=== PATIENT | female | born 1975 | race Caucasian/White ===

== ENCOUNTER 2016-09-09 23:19 | Emergency (ER) | payer OTHER ==
[~2016-09-09] VITALS: Ht 162.6 cm; Wt 145.0 kg
[~2016-09-09 23:19] MED LIST: ACETTAB3 PO; AMBIEN CR12.5 MG OR; AMOXICILLIN500 MG OR; AMOXICILLIN500 MG PO; ANTIVERT25 MG PO; ARMOUR THYRO60 MG PO; AZITHROMYCIN250 MG PO; B12 LIQUID IJ; BACLOFEN10 MG PO; BIAXIN500 M1 OR; CELEBREX200 MG PO; CELEBREX50 MG OR; CEPHALEXIN500 MG OR; CIPRO500 MG OR; CIPROFLOXACN500 MG PO; CLARITHROMYC500 M2 PO; D350000 IU PO; DARVOCET N-100100 - OR; DEPO-PROVER150 MG/ML IM; DHEA50 MG PO; DOXYCYC MONO100 MG OR; EMBREL IM; EQL B-121000 MCG IM; FIORICET PO; FLAGYL500 MG OR; FLEXERIL OR; FOLIC ACID1 MG OR; FUROSEMIDE20 MG PO; GABAPENTIN600 MG PO; HCG; HYDROCHLOROT25 MG OR; HYDROCHLOROT25 MG PO; IMURAN50 MG OR; IMURAN50 MG PO; INDERAL 40MG TA40 MG PO; ISONIAZID300 MG PO; K-DUR/KLOR-CON10 ME1 PO; KEFLEX250 MG PO; LASIX 20 MG TAB20 MG PO; LASIX 80 MG TAB80 MG PO; LASIX20 MG OR; LEVAQUIN500 MG PO; LOMOTIL2.5 MG OR; LORTAB 10 OR; LORTAB 5 OR; LYRICA150 MG OR; LYRICA50 MG OR; METHOTREXATE2.5 M1 OR; METHOTREXATE25 MG/ML IJ; MIRALAX3350 N1 PO; MORPHINE OR; MS CONTIN ER15 MG OR; MUCINEX600 MG PO; NEURONTIN100 MG OR; NEXIUM40 M1 OR; NEXIUM40 MG PO; NORCO1 TA2 OR; NORCO1 TAB PO; OMEGA-3 FISH1000 MG PO; OMEPRAZOLE20 MG PO; OXYCODONE HCL15 MG PO; OXYCODONE5 MG OR; PERCOCET 5/325M1 TAB OR; PERCOCET 5/325M1 TAB PO; PERCOCET1 TA4 PO; PLAQUENIL200 MG OR; PLAQUENIL200 MG PO; PREDNISONE1 MG PO; PREVACID30 M1 PO; PRIFTIN150 MG PO; PRILOSEC20 MG OR; PRILOSEC40 MG PO; PROAIR HFA IN; PROMETHAZINE25 M1 RE; PROMETHAZINE25 MG OR; PROMETHAZINE25 MG PO; PROPRANOLOL40 MG PO; PROPRANOLOL80 M1 PO; PYRIDOXINE25 MG PO; RESTORIL15 M1 PO; SEPTRA DS1 TAB OR; SMZ-TMP DS1 TAB PO; SOMA350 MG OR; SOMA350 MG PO; SUMATRIPTAN25 MG PO; SYNTHROID75 MCG PO; TEMAZEPAM30 MG PO; TORADOL OR; VENTOLIN HF1 IN; VISTARIL25 MG PO; VISTARIL50 MG PO; VOLTAREN75 M1 OR; VOLTAREN75 MG PO; VOSOL2 % OT; XANAX0.5 MG PO; ZITHROMAX250 MG PO; ZOFRAN ODT8 MG SL; ZONEGRAN100 M1 OR; ZPAK OR; [UNRECOGNIZED DRUG - OTHER] NAB
[2016-09-09] MEDS ORDERED: PERCOCET 10/31 COMBO PO (23:30)
[2016-09-10 00:45] VITALS: BP 134/76
== END 2016-09-10 00:52 | disposition home or self-care (01) | DRG 103 ==
LOC: ED 23:19
DX: G43.909 Migraine, unspecified, not intractable, without status migrainosus (principal); M32.9 Systemic lupus erythematosus, unspecified; G93.2 Benign intracranial hypertension; M19.90 Unspecified osteoarthritis, unspecified site; I10 Essential (primary) hypertension; N28.9 Disorder of kidney and ureter, unspecified; Z98.2 Presence of cerebrospinal fluid drainage device

== ENCOUNTER 2016-11-06 19:36 | Emergency (ER) | payer OTHER ==
[~2016-11-06] VITALS: Ht 162.6 cm; Wt 146.2 kg
[~2016-11-06 19:36] MED LIST changes: +PERCOCET 10/31 COMBO PO
[2016-11-06 20:24] LABS: URINE BILIRUBIN - DIPSTICK NEGATIVE (NEGATIVE); URINE BLOOD DIPSTICK SMALL (NEGATIVE); URINE CLARITY CLOUDY; URINE COLOR YELLOW; URINE GLUCOSE - DIPSTICK NEGATIVE (NEGATIVE); URINE KETONE TRACE mg/dL (NEGATIVE); URINE LEUK ESTERASE TRACE (NEGATIVE); URINE NITRITE - DIPSTICK NEGATIVE (Negative); URINE PH 6.5 (4.5-8.0); URINE PROTEIN - DIPSTICK TRACE mg/dL (NEG-TRACE); URINE UROBILINOGEN - DIPSTICK 0.2 E.U./dL (0.2)
[2016-11-06 20:34] LABS: URINE BACTERIA FEW hpf; URINE MUCUS FEW hpf (NONE-FEW); URINE SQUAMOUS EPITHELIAL CELL MANY EPI/hpf (0-FEW)
[2016-11-06 20:38] LABS: HEMATOCRIT 34.1 % (37.0-47.0); HEMOGLOBIN 11.5 g/dl (12.0-16.0); IMMATURE GRANULOCYTES 0.6 % (0.0-1.0); MEAN CELL VOLUME 90.2 fL CALC (80.0-100.0); MEAN CORPUSCULAR HGB 30.4 pG CALC (26.0-32.0); MEAN CORPUSCULAR HGB CONC 33.7 g/L CALC (32.0-36.0); NEUT# 4.13 thou/uL (2.00-7.15); RED BLOOD COUNT 3.78 mill/uL (4.20-5.60); RED CELL DISTRI WIDTH 11.9 % (11.5-15.5)
[2016-11-06 20:51] LABS: ALBUMIN 3.8 g/dL (3.2-5.0); ALKALINE PHOSPHATASE 106 u/l (38-126); ANION GAP 15 (6-22 (CALC)); BILIRUBIN, TOTAL 0.4 mg/dL (0.0-1.4); BUN 10 mg/dL (7-17); BUN/CREATININE RATIO 11 (12-20 (CALC)); CALCIUM 8.7 mg/dL (8.4-10.2); CARBON DIOXIDE 26 mmol/l (22-30); CHLORIDE 106 mmol/l (95-108); CREATININE 0.9 mg/dL (0.5-1.0); GFR > 60 ML/MIN (>=60 (CALC)); GFR FOR AFR.AMER. > 60 ML/MIN (>=60 (CALC)); GLUCOSE 97 mg/dL (65-105); POTASSIUM 4.1 mmol/l (3.5-5.1); SGOT/AST 29 u/l (14-36); SGPT/ALT 43 u/l (9-52); SODIUM 143 mmol/l (137-146); TOTAL PROTEIN 7.5 g/dL (6.3-8.2)
[2016-11-06 20:55] LABS: INFLUENZA A NONE DETECTED (NONE DETECT); INFLUENZA B NONE DETECTED (NONE DETECT)
[2016-11-06 23:30] VITALS: BP 181/91
== END 2016-11-06 23:30 | disposition left against medical advice (07) | DRG 204 ==
LOC: ED 19:36
PROVIDERS: Emergency Medicine
DX: R06.00 Dyspnea, unspecified (principal); M32.14 Glomerular disease in systemic lupus erythematosus; D86.0 Sarcoidosis of lung; I10 Essential (primary) hypertension; G93.2 Benign intracranial hypertension; Z91.19 Patient's noncompliance with other medical treatment and regimen; Z98.2 Presence of cerebrospinal fluid drainage device

== ENCOUNTER 2016-12-10 19:00 | Emergency (ER) | payer OTHER ==
[~2016-12-10] VITALS: Ht 162.6 cm; Wt 144.8 kg
[2016-12-10 20:32] LABS: HEMATOCRIT 40.4 % (37.0-47.0); HEMOGLOBIN 13.7 g/dl (12.0-16.0); IMMATURE GRANULOCYTES 0.4 % (0.0-1.0); MEAN CORPUSCULAR HGB 30.5 pG CALC (26.0-32.0); MEAN CORPUSCULAR HGB CONC 33.9 g/L CALC (32.0-36.0); NEUT# 6.33 thou/uL (2.00-7.15); RED BLOOD COUNT 4.49 mill/uL (4.20-5.60); RED CELL DISTRI WIDTH 12.4 % (11.5-15.5)
[2016-12-10 21:26] LABS: ALBUMIN 4.8 g/dL (3.2-5.0); BILIRUBIN, TOTAL 0.6 mg/dL (0.0-1.4); CALCIUM 9.8 mg/dL (8.4-10.2); CREATININE 1.2 mg/dL (0.5-1.0); POTASSIUM 4.7 mmol/l (3.5-5.1)
[2016-12-10] MEDS ORDERED: AMLODIPINE2.5 MG PO (21:45)
[2016-12-10 22:10] VITALS: BP 168/104
== END 2016-12-10 22:10 | disposition home or self-care (01) | DRG 305 ==
LOC: ED 19:00
PROVIDERS: Emergency Medicine
DX: I10 Essential (primary) hypertension (principal); M79.1 Myalgia; Z98.890 Other specified postprocedural states

== ENCOUNTER 2017-01-23 02:02 | Emergency (ER) | payer MEDICAID ==
[~2017-01-23] VITALS: Ht 162.6 cm; Wt 143.2 kg
[~2017-01-23 02:02] MED LIST changes: +AMLODIPINE2.5 MG PO
[2017-01-23 04:22] VITALS: BP 140/81
== END 2017-01-23 04:23 | disposition home or self-care (01) | DRG 552 ==
LOC: ED 02:02
DX: S23.3XXA Sprain of ligaments of thoracic spine, initial encounter (principal); M32.9 Systemic lupus erythematosus, unspecified; I10 Essential (primary) hypertension; G93.2 Benign intracranial hypertension; X50.9XXA Other and unspecified overexertion or strenuous movements or postures, initial encounter; Y93.H9 Activity, other involving exterior property and land maintenance, building and construction; Z98.2 Presence of cerebrospinal fluid drainage device

== ENCOUNTER 2017-08-01 21:17 | Emergency (ER) | payer OTHER ==
[~2017-08-01] VITALS: Ht 162.6 cm; Wt 155.0 kg
[2017-08-01] MEDS ORDERED: HYDRALAZINE HCL25 MG PO (21:38)
[2017-08-01] MEDS ORDERED: LOSARTAN POT100 MG PO (21:39)
[2017-08-01] MEDS ORDERED: SPIRONOLACT50 M1 PO (21:40)
[2017-08-01] MEDS ORDERED: SEROQUEL XR150 MG PO (21:41)
[2017-08-01] MEDS ORDERED: ALDOMET250 MG PO (21:46)
[2017-08-01 22:12] LABS: URINE BILIRUBIN - DIPSTICK NEGATIVE (NEGATIVE); URINE BLOOD DIPSTICK TRACE-INTACT (NEGATIVE); URINE COLOR YELLOW; URINE GLUCOSE - DIPSTICK NEGATIVE (NEGATIVE); URINE KETONE NEGATIVE (NEGATIVE); URINE LEUK ESTERASE TRACE (NEGATIVE); URINE NITRITE - DIPSTICK NEGATIVE (Negative); URINE PROTEIN - DIPSTICK NEGATIVE (NEG-TRACE); URINE SPECIFIC GRAVITY >=1.030; URINE UROBILINOGEN - DIPSTICK 0.2 E.U./dL (0.2)
[2017-08-01 22:13] LABS: HEMOGLOBIN 12.6 g/dl (12.0-16.0); IMMATURE GRANULOCYTES 0.4 % (0.0-1.0); MEAN CELL VOLUME 92.7 fL CALC (80.0-100.0); MEAN CORPUSCULAR HGB 30.7 pG CALC (26.0-32.0); MEAN CORPUSCULAR HGB CONC 33.2 g/L CALC (32.0-36.0); NEUT# 5.13 thou/uL (2.00-7.15); RED BLOOD COUNT 4.1 mill/uL (4.20-5.60); RED CELL DISTRI WIDTH 12.3 % (11.5-15.5)
[2017-08-01 22:19] LABS: URINE CLARITY CLEAR
[2017-08-01 22:45] LABS: ALKALINE PHOSPHATASE 134 u/l (38-126); ANION GAP 18 (6-22 (CALC)); BILIRUBIN, TOTAL 0.3 mg/dL (0.0-1.4); BUN 10 mg/dL (7-17); BUN/CREATININE RATIO 10 (12-20 (CALC)); CARBON DIOXIDE 26 mmol/l (22-30); CHLORIDE 104 mmol/l (95-108); GFR > 60 ML/MIN (>=60 (CALC)); GFR FOR AFR.AMER. > 60 ML/MIN (>=60 (CALC)); POTASSIUM 4.2 mmol/l (3.5-5.1); SGPT/ALT 39 u/l (9-52); SODIUM 144 mmol/l (137-146); TOTAL PROTEIN 7.9 g/dL (6.3-8.2)
[2017-08-01 22:49] LABS: SGOT/AST 41 u/l (14-36)
[2017-08-01 22:53] LABS: ACT PARTIAL THROMBO TIME 25.6 SECONDS (20.0-32.5); INTERNATIONAL NORMALIZED RATIO 0.9 RATIO (0.7-1.3); PROTHROMBIN TIME 10.3 SECONDS (9.0-12.5)
[2017-08-01 22:57] LABS: MYOGLOBIN 45 ng/mL (0 - 62)
[2017-08-02 00:45] VITALS: BP 187/100
== END 2017-08-02 00:50 | disposition home or self-care (01) | DRG 305 ==
LOC: ED 21:17
PROVIDERS: Emergency Medicine
DX: I10 Essential (primary) hypertension (principal); L93.0 Discoid lupus erythematosus; R06.02 Shortness of breath; R60.0 Localized edema

== ENCOUNTER 2017-11-22 20:50 | Emergency (ER) | payer OTHER ==
[~2017-11-22] VITALS: Ht 162.6 cm; Wt 160.0 kg
[~2017-11-22 20:50] MED LIST changes: +ALDOMET250 MG PO; +HYDRALAZINE HCL25 MG PO; +LOSARTAN POT100 MG PO; +SEROQUEL XR150 MG PO; +SPIRONOLACT50 M1 PO
[2017-11-22 21:42] LABS: HEMOGLOBIN 12.1 g/dl (12.0-16.0); IMMATURE GRANULOCYTES 0.6 % (0.0-5.0); MEAN CELL VOLUME 90.2 fL CALC (80.0-100.0); MEAN CORPUSCULAR HGB 30.3 pG CALC (26.0-32.0); MEAN CORPUSCULAR HGB CONC 33.6 g/L CALC (32.0-36.0); NEUT# 4.62 thou/uL (2.00-7.15); RED BLOOD COUNT 3.99 mill/uL (4.20-5.60); RED CELL DISTRI WIDTH 12.2 % (11.5-15.5)
[2017-11-22 21:43] LABS: URINE BILIRUBIN - DIPSTICK NEGATIVE (NEGATIVE); URINE BLOOD DIPSTICK TRACE-INTACT (NEGATIVE); URINE COLOR YELLOW; URINE GLUCOSE - DIPSTICK NEGATIVE (NEGATIVE); URINE KETONE NEGATIVE (NEGATIVE); URINE LEUK ESTERASE NEGATIVE (NEGATIVE); URINE NITRITE - DIPSTICK NEGATIVE (Negative); URINE PROTEIN - DIPSTICK TRACE mg/dL (NEG-TRACE); URINE SPECIFIC GRAVITY >=1.030; URINE UROBILINOGEN - DIPSTICK 0.2 E.U./dL (0.2)
[2017-11-22 21:44] LABS: URINE CLARITY CLEAR
[2017-11-22 22:01] LABS: ALKALINE PHOSPHATASE 118 u/l (38-126); ANION GAP 14 (6-22 (CALC)); BILIRUBIN, TOTAL 0.3 mg/dL (0.0-1.4); BUN 12 mg/dL (7-17); BUN/CREATININE RATIO 11 (12-20 (CALC)); CARBON DIOXIDE 24 mmol/l (22-30); CHLORIDE 109 mmol/l (95-108); CREATININE 1.1 mg/dL (0.5-1.0); GFR 54 ML/MIN (>=60 (CALC)); GFR FOR AFR.AMER. > 60 ML/MIN (>=60 (CALC)); SGOT/AST 27 u/l (14-36); SGPT/ALT 37 u/l (9-52); SODIUM 143 mmol/l (137-146); TOTAL PROTEIN 7.8 g/dL (6.3-8.2)
[2017-11-22] MEDS ORDERED: DIFLUCAN100 MG PO (22:10)
[2017-11-22] MEDS ORDERED: HYDRALAZINE25 MG PO (22:11)
[2017-11-22] MEDS ORDERED: DEMADEX20 MG PO (22:12)
[2017-11-22 22:13] LABS: MYOGLOBIN 53 ng/mL (0 - 62)
[2017-11-22] MEDS ORDERED: CEVIMELINE HCL30 MG PO (22:13)
[2017-11-22] MEDS ORDERED: SINGULAIR10 MG PO (22:14)
[2017-11-23 00:02] VITALS: BP 178/87
== END 2017-11-23 00:01 | disposition home or self-care (01) ==
LOC: ED 20:50
PROVIDERS: Emergency Medicine
DX: R60.9 Edema, unspecified (principal); I10 Essential (primary) hypertension; M32.9 Systemic lupus erythematosus, unspecified; M79.7 Fibromyalgia; E03.9 Hypothyroidism, unspecified; Z98.2 Presence of cerebrospinal fluid drainage device; R06.02 Shortness of breath; M79.89 Other specified soft tissue disorders

== ENCOUNTER 2018-03-04 22:57 | Emergency (ER) | payer OTHER ==
[~2018-03-04] VITALS: Ht 162.6 cm; Wt 150.0 kg
[~2018-03-04 22:57] MED LIST changes: +CEVIMELINE HCL30 MG PO; +DEMADEX20 MG PO; +DIFLUCAN100 MG PO; +HYDRALAZINE25 MG PO; +PRILOSEC20 MG/CAP PO; -PRILOSEC40 MG PO; +SINGULAIR10 MG PO
[2018-03-04 22:59] VITALS: BP 163/114
[2018-03-04 23:54] LABS: URINE BILIRUBIN - DIPSTICK NEGATIVE (NEGATIVE); URINE BLOOD DIPSTICK TRACE-INTACT (NEGATIVE); URINE COLOR YELLOW; URINE GLUCOSE - DIPSTICK NEGATIVE (NEGATIVE); URINE KETONE NEGATIVE (NEGATIVE); URINE LEUK ESTERASE NEGATIVE (NEGATIVE); URINE NITRITE - DIPSTICK NEGATIVE (Negative); URINE PH 5.5 (4.5-8.0); URINE PROTEIN - DIPSTICK TRACE mg/dL (NEG-TRACE); URINE SPECIFIC GRAVITY >=1.030; URINE UROBILINOGEN - DIPSTICK 0.2 E.U./dL (0.2)
[2018-03-04 23:56] LABS: URINE CLARITY CLOUDY
[2018-03-05] LABS: URINE BACTERIA FEW hpf; URINE MUCUS FEW hpf (NONE-FEW); URINE SQUAMOUS EPITHELIAL CELL MANY EPI/hpf (0-FEW); URINE TRANSITIONAL EPI. CELLS FEW hpf
[2018-03-05] MEDS ORDERED: FLEXERIL PO (01:28)
== END 2018-03-05 01:49 | disposition home or self-care (01) ==
LOC: ED 22:57
PROVIDERS: Family Medicine
DX: S39.012A Strain of muscle, fascia and tendon of lower back, initial encounter (principal); V43.52XA Car driver injured in collision with other type car in traffic accident, initial encounter; Y92.414 Local residential or business street as the place of occurrence of the external cause
CPT/HCPCS: J3360

== ENCOUNTER 2018-04-24 22:29 | Emergency (ER) | payer OTHER ==
[~2018-04-24] VITALS: Ht 162.6 cm; Wt 147.7 kg
[~2018-04-24 22:29] MED LIST changes: +FLEXERIL PO
[2018-04-24 23:21] LABS: HEMOGLOBIN 12.6 g/dl (12.0-16.0); IMMATURE GRANULOCYTES 0.4 % (0.0-5.0); MEAN CELL VOLUME 91.1 fL CALC (80.0-100.0); MEAN CORPUSCULAR HGB CONC 34.1 g/L CALC (32.0-36.0); NEUT# 4.49 thou/uL (2.00-7.15); RED BLOOD COUNT 4.06 mill/uL (4.20-5.60); RED CELL DISTRI WIDTH 12.7 % (11.5-15.5)
[2018-04-24 23:36] LABS: ALBUMIN 3.7 g/dL (3.2-5.0); ALKALINE PHOSPHATASE 111 u/l (38-126); ANION GAP 14 (6-22 (CALC)); BILIRUBIN, TOTAL 0.4 mg/dL (0.0-1.4); BUN 13 mg/dL (7-17); BUN/CREATININE RATIO 14 (12-20 (CALC)); CARBON DIOXIDE 23 mmol/l (22-30); CHLORIDE 108 mmol/l (95-108); CREATININE 0.9 mg/dL (0.5-1.0); GFR > 60 ML/MIN (>=60 (CALC)); GFR FOR AFR.AMER. > 60 ML/MIN (>=60 (CALC)); POTASSIUM 3.8 mmol/l (3.5-5.1); SGOT/AST 27 u/l (14-36); SODIUM 142 mmol/l (137-146); TOTAL PROTEIN 7.1 g/dL (6.3-8.2)
[2018-04-25] MEDS ORDERED: ROBITUSSIN AC10 ML PO (00:26)
[2018-04-25] MEDS ORDERED: CEPHALEXIN500 M1 PO (00:26)
[2018-04-25 00:50] VITALS: BP 166/102
[2018-04-25] MEDS ORDERED: SINGULAIR10 MG PO (01:45)
[2018-04-25] MEDS ORDERED: PROAIR HFA IN (01:45)
[2018-04-25] MEDS ORDERED: PERCOCET 10/31 COMBO PO (23:24)
[2018-04-25] MEDS ORDERED: ZOFRAN ODT4 MG PO (23:24)
== END 2018-04-25 00:55 | disposition home or self-care (01) ==
LOC: ED 22:29
PROVIDERS: Emergency Medicine
DX: J06.9 Acute upper respiratory infection, unspecified (principal); J45.909 Unspecified asthma, uncomplicated; R06.02 Shortness of breath; R05 Cough; R50.9 Fever, unspecified

== ENCOUNTER 2018-04-25 21:11 | Emergency (ER) | payer OTHER ==
[~2018-04-25] VITALS: Ht 162.6 cm; Wt 152.0 kg
[~2018-04-25 21:11] MED LIST changes: +CEPHALEXIN500 M1 PO; +ROBITUSSIN AC10 ML PO
[2018-04-25 22:02] LABS: HEMATOCRIT 35.6 % (37.0-47.0); IMMATURE GRANULOCYTES 0.5 % (0.0-5.0); MEAN CELL VOLUME 91.3 fL CALC (80.0-100.0); MEAN CORPUSCULAR HGB 30.8 pG CALC (26.0-32.0); MEAN CORPUSCULAR HGB CONC 33.7 g/L CALC (32.0-36.0); NEUT# 2.58 thou/uL (2.00-7.15); RED BLOOD COUNT 3.9 mill/uL (4.20-5.60); RED CELL DISTRI WIDTH 12.7 % (11.5-15.5)
[2018-04-25 22:09] LABS: ALBUMIN 3.5 g/dL (3.2-5.0); ALKALINE PHOSPHATASE 99 u/l (38-126); ANION GAP 13 (6-22 (CALC)); BILIRUBIN, TOTAL 0.6 mg/dL (0.0-1.4); BUN 9 mg/dL (7-17); BUN/CREATININE RATIO 11 (12-20 (CALC)); CARBON DIOXIDE 24 mmol/l (22-30); CHLORIDE 106 mmol/l (95-108); CREATININE 0.8 mg/dL (0.5-1.0); GFR > 60 ML/MIN (>=60 (CALC)); GFR FOR AFR.AMER. > 60 ML/MIN (>=60 (CALC)); POTASSIUM 4.5 mmol/l (3.5-5.1); SODIUM 138 mmol/l (137-146); TOTAL PROTEIN 6.9 g/dL (6.3-8.2)
[2018-04-25 22:10] LABS: SGOT/AST 53 u/l (14-36)
--- NOTE | 2018-04-25 22:54 | NUR ---
BREATHING TREATMENT GIVEN USING A MOUTH PEICE. BREATHING TECH. FOR GOOD DEPOSITION TO THE LUNGS.
[2018-04-25] MEDS ORDERED: ZOFRAN ODT4 MG PO (23:24)
[2018-04-25] MEDS ORDERED: PERCOCET 10/31 COMBO PO (23:24)
[2018-04-25 23:40] VITALS: BP 152/95
== END 2018-04-25 23:40 | disposition home or self-care (01) ==
LOC: ED 21:11
PROVIDERS: Emergency Medicine
DX: R51 Headache (principal); F41.9 Anxiety disorder, unspecified; R06.02 Shortness of breath

== ENCOUNTER 2018-07-22 15:18 | Emergency (ER) | payer OTHER ==
[~2018-07-22] VITALS: Ht 162.6 cm; Wt 156.4 kg
[~2018-07-22 15:18] MED LIST changes: +ZOFRAN ODT4 MG PO
[2018-07-22 16:15] LABS: URINE BILIRUBIN - DIPSTICK NEGATIVE (NEGATIVE); URINE BLOOD DIPSTICK NEGATIVE (NEGATIVE); URINE COLOR YELLOW; URINE GLUCOSE - DIPSTICK NEGATIVE (NEGATIVE); URINE KETONE TRACE mg/dL (NEGATIVE); URINE LEUK ESTERASE NEGATIVE (NEGATIVE); URINE NITRITE - DIPSTICK NEGATIVE (Negative); URINE PH 5.5 (4.5-8.0); URINE PROTEIN - DIPSTICK 30 mg/dL (NEG-TRACE); URINE SPECIFIC GRAVITY 1.025; URINE UROBILINOGEN - DIPSTICK 0.2 E.U./dL (0.2)
[2018-07-22 17:01] LABS: HEMOGLOBIN 11.4 g/dl (12.0-16.0); IMMATURE GRANULOCYTES 0.6 % (0.0-5.0); MEAN CELL VOLUME 92.7 fL CALC (80.0-100.0); MEAN CORPUSCULAR HGB 28.6 pG CALC (26.0-32.0); MEAN CORPUSCULAR HGB CONC 30.8 g/L CALC (32.0-36.0); NEUT# 6.02 thou/uL (2.00-7.15); RED BLOOD COUNT 3.99 mill/uL (4.20-5.60); RED CELL DISTRI WIDTH 12.6 % (11.5-15.5)
[2018-07-22] MEDS ORDERED: XANAX1 MG PO ×2 (17:07)
[2018-07-22] MEDS ORDERED: CHEMO PO (17:11)
[2018-07-22] MEDS ORDERED: ARAVA20 MG PO (17:17)
[2018-07-22 17:35] LABS: ALBUMIN 3.7 g/dL (3.2-5.0); ALKALINE PHOSPHATASE 119 u/l (38-126); ANION GAP 17 (6-22 (CALC)); BILIRUBIN, TOTAL 0.7 mg/dL (0.0-1.4); BUN 15 mg/dL (7-17); BUN/CREATININE RATIO 15 (12-20 (CALC)); CARBON DIOXIDE 22 mmol/l (22-30); CHLORIDE 105 mmol/l (95-108); GFR 60 ML/MIN (>=60 (CALC)); GFR FOR AFR.AMER. > 60 ML/MIN (>=60 (CALC)); POTASSIUM 4.6 mmol/l (3.5-5.1); SGOT/AST 30 u/l (14-36); SODIUM 139 mmol/l (137-146); TOTAL PROTEIN 7.9 g/dL (6.3-8.2)
[2018-07-22 17:37] LABS: URINE MUCUS FEW hpf (NONE-FEW); URINE SQUAMOUS EPITHELIAL CELL FEW EPI/hpf (0-FEW)
[2018-07-22 21:18] VITALS: BP 150/86
== END 2018-07-22 21:30 | disposition home or self-care (01) ==
LOC: ED 15:18
PROVIDERS: Emergency Medicine
DX: K52.89 Other specified noninfective gastroenteritis and colitis (principal); D86.89 Sarcoidosis of other sites; R10.31 Right lower quadrant pain; R10.9 Unspecified abdominal pain
CPT/HCPCS: Q9967

== ENCOUNTER 2018-07-25 18:09 | Emergency (ER) | payer OTHER ==
[~2018-07-25] VITALS: Ht 162.6 cm; Wt 156.0 kg
[~2018-07-25 18:09] MED LIST changes: +ARAVA20 MG PO; +CHEMO PO; +XANAX1 MG PO
[2018-07-25 19:19] LABS: ALBUMIN 3.5 g/dL (3.2-5.0); ALKALINE PHOSPHATASE 143 u/l (38-126); ANION GAP 16 (6-22 (CALC)); BILIRUBIN, TOTAL 0.3 mg/dL (0.0-1.4); BUN 12 mg/dL (7-17); BUN/CREATININE RATIO 12 (12-20 (CALC)); CARBON DIOXIDE 25 mmol/l (22-30); CHLORIDE 102 mmol/l (95-108); GFR 60 ML/MIN (>=60 (CALC)); GFR FOR AFR.AMER. > 60 ML/MIN (>=60 (CALC)); POTASSIUM 4.2 mmol/l (3.5-5.1); SGOT/AST 20 u/l (14-36); SODIUM 139 mmol/l (137-146); TOTAL PROTEIN 7.4 g/dL (6.3-8.2)
[2018-07-25 19:26] LABS: HEMATOCRIT 31.5 % (37.0-47.0); IMMATURE GRANULOCYTES 0.5 % (0.0-5.0); MEAN CELL VOLUME 89.7 fL CALC (80.0-100.0); MEAN CORPUSCULAR HGB 28.5 pG CALC (26.0-32.0); MEAN CORPUSCULAR HGB CONC 31.7 g/L CALC (32.0-36.0); NEUT# 5.57 thou/uL (2.00-7.15); RED BLOOD COUNT 3.51 mill/uL (4.20-5.60); RED CELL DISTRI WIDTH 12.5 % (11.5-15.5)
[2018-07-25 23:14] LABS: URINE BILIRUBIN - DIPSTICK NEGATIVE (NEGATIVE); URINE BLOOD DIPSTICK SMALL (NEGATIVE); URINE COLOR YELLOW; URINE GLUCOSE - DIPSTICK NEGATIVE (NEGATIVE); URINE KETONE TRACE mg/dL (NEGATIVE); URINE LEUK ESTERASE NEGATIVE (NEGATIVE); URINE NITRITE - DIPSTICK NEGATIVE (Negative); URINE PH 6.5 (4.5-8.0); URINE PROTEIN - DIPSTICK 30 mg/dL (NEG-TRACE); URINE UROBILINOGEN - DIPSTICK 0.2 E.U./dL (0.2)
[2018-07-25 23:20] LABS: BARBITURATES POSITIVE (NEGATIVE); COCAINE NEGATIVE (NEGATIVE); METHADONE NEGATIVE (NEGATIVE); OXCYCODONE POSITIVE (NEGATIVE); TETRAHYDROCANNABIONOL NEGATIVE (NEGATIVE); TRICYLIC ANTIDEPRESSANTS NEGATIVE (NEGATIVE)
[2018-07-25 23:21] LABS: URINE BACTERIA FEW hpf; URINE MUCUS MODERATE hpf (NONE-FEW); URINE SQUAMOUS EPITHELIAL CELL MANY EPI/hpf (0-FEW)
[2018-07-25] MEDS ORDERED: CIPROFLOXACN500 MG PO (23:57)
[2018-07-26] MEDS ORDERED: PERCOCET 10/31 COMBO PO (00:03)
[2018-07-26 00:18] VITALS: BP 149/82
== END 2018-07-26 01:12 | disposition home or self-care (01) ==
LOC: ED 18:09
PROVIDERS: Emergency Medicine
DX: N39.0 Urinary tract infection, site not specified (principal); I10 Essential (primary) hypertension; E03.9 Hypothyroidism, unspecified; Z98.2 Presence of cerebrospinal fluid drainage device; R06.02 Shortness of breath; R10.13 Epigastric pain; R50.9 Fever, unspecified
CPT/HCPCS: Q9967

== ENCOUNTER 2019-03-16 15:50 | Emergency (ER) | payer OTHER ==
[~2019-03-16] VITALS: Ht 162.6 cm; Wt 159.1 kg
[2019-03-16 17:05] VITALS: BP 128/82
== END 2019-03-16 17:05 | disposition home or self-care (01) ==
LOC: ED 15:50
DX: T82.838A Hemorrhage due to vascular prosthetic devices, implants and grafts, initial encounter (principal); Y84.8 Other medical procedures as the cause of abnormal reaction of the patient, or of later complication, without mention of misadventure at the time of the procedure

== ENCOUNTER 2019-04-05 20:35 | Emergency (ER) | payer OTHER ==
[~2019-04-05] VITALS: Ht 162.6 cm; Wt 154.5 kg
[2019-04-05] MEDS ORDERED: GABAPENTIN300 M2 PO (20:50)
[2019-04-05 22:11] LABS: HEMATOCRIT 35.6 % (37.0-47.0); HEMOGLOBIN 10.9 g/dl (12.0-16.0); IMMATURE GRANULOCYTES 0.5 % (0.0-5.0); MEAN CELL VOLUME 90.6 fL CALC (80.0-100.0); MEAN CORPUSCULAR HGB 27.7 pG CALC (26.0-32.0); MEAN CORPUSCULAR HGB CONC 30.6 g/L CALC (32.0-36.0); NEUT# 8.19 thou/uL (2.00-7.15); RED BLOOD COUNT 3.93 mill/uL (4.20-5.60); RED CELL DISTRI WIDTH 13.2 % (11.5-15.5)
[2019-04-05 22:28] LABS: ALBUMIN 4.2 g/dL (3.2-5.0); BILIRUBIN, TOTAL 0.3 mg/dL (0.0-1.4); CREATININE 1.2 mg/dL (0.5-1.0); POTASSIUM 4.4 mmol/l (3.5-5.1); PROTHROMBIN TIME 10.2 SECONDS (9.0-12.5); TOTAL PROTEIN 8.6 g/dL (6.3-8.2)
[2019-04-06 00:06] LABS: URINE BILIRUBIN - DIPSTICK NEGATIVE (NEGATIVE); URINE BLOOD DIPSTICK LARGE (NEGATIVE); URINE COLOR RED; URINE GLUCOSE - DIPSTICK NEGATIVE (NEGATIVE); URINE KETONE TRACE mg/dL (NEGATIVE); URINE LEUK ESTERASE TRACE (NEGATIVE); URINE PROTEIN - DIPSTICK 100 mg/dL (NEG-TRACE); URINE UROBILINOGEN - DIPSTICK 0.2 E.U./dL (0.2)
[2019-04-06 00:07] LABS: URINE NITRITE - DIPSTICK NEGATIVE (Negative)
[2019-04-06 00:10] LABS: URINE BACTERIA FEW hpf; URINE EPITHELIAL CELLS FEW EPI/hpf (0-FEW); URINE RBC TNTC RBC/hpf (0-5)
[2019-04-06] MEDS ORDERED: BACTRIM DS1 TAB PO (00:27)
[2019-04-06 00:40] VITALS: BP 190/88
== END 2019-04-06 00:40 | disposition home or self-care (01) ==
LOC: ED 20:35
PROVIDERS: Emergency Medicine
DX: R07.81 Pleurodynia (principal); R31.9 Hematuria, unspecified; N39.0 Urinary tract infection, site not specified; Z99.81 Dependence on supplemental oxygen

== ENCOUNTER 2020-02-22 17:41 | Emergency (ER) | payer OTHER ==
[~2020-02-22] VITALS: Ht 162.6 cm; Wt 161.4 kg
[~2020-02-22 17:41] MED LIST changes: +BACTRIM DS1 TAB PO; +GABAPENTIN300 M2 PO
[2020-02-22 21:17] VITALS: BP 147/87
== END 2020-02-22 21:17 | disposition home or self-care (01) ==
LOC: ED 17:41
DX: M54.5 Low back pain (principal); I10 Essential (primary) hypertension; E03.9 Hypothyroidism, unspecified; R91.8 Other nonspecific abnormal finding of lung field; W07.XXXA Fall from chair, initial encounter; Z98.2 Presence of cerebrospinal fluid drainage device

== ENCOUNTER 2022-12-22 06:55 | Day surgery (SDC) | payer OTHER ==
[~2022-12-22] VITALS: Ht 162.6 cm; Wt 139.3 kg
[2022-12-22] MEDS ORDERED: PEPCID40 MG PO (07:08)
[2022-12-22] MEDS ORDERED: B125000 MCG SC (07:11)
[2022-12-22] MEDS ORDERED: MONTELUKAST SOD10 MG PO (07:11)
[2022-12-22] MEDS ORDERED: COREG25 MG PO (07:12)
[2022-12-22] MEDS ORDERED: AYGESTIN5 MG PO (07:12)
[2022-12-22] MEDS ORDERED: ELIQUIS5 MG PO (07:13)
[2022-12-22] MEDS ORDERED: LOSARTAN POTASS50 MG PO (07:13)
[2022-12-22] MEDS ORDERED: DOCUSATE CAL240 MG PO (07:14)
[2022-12-22] MEDS ORDERED: MULTI VIT PO (07:14)
[2022-12-22 09:58] VITALS: BP 158/99
== END 2022-12-22 10:20 | disposition home or self-care (01) ==
LOC: ORM 06:55
PROVIDERS: ATTEND Physical Medicine & Rehabilitation
DX: M54.9 Dorsalgia, unspecified (principal); Z53.09 Procedure and treatment not carried out because of other contraindication; I10 Essential (primary) hypertension

== ENCOUNTER 2023-05-09 20:31 | Emergency (ER) | payer OTHER ==
[2023-05-09] VITALS (8 sets, daily range): BP systolic 120–160; BP diastolic 76–105
[~2023-05-09] VITALS: Ht 162.6 cm; Wt 139.2 kg
[~2023-05-09 20:31] MED LIST changes: +AYGESTIN5 MG PO; +B125000 MCG SC; +COREG25 MG PO; +DOCUSATE CAL240 MG PO; +ELIQUIS5 MG PO; +LOSARTAN POTASS50 MG PO; +MONTELUKAST SOD10 MG PO; +MULTI VIT PO; +PEPCID40 MG PO
[2023-05-09 21:32] LABS: BASO% 0.3 % (0-3); EOS% 2.1 % (0-8); HEMOGLOBIN 13.7 g/dl (12.0-16.0); IMMATURE GRANULOCYTES 0.3 % (0.0-5.0); LYMPH% 29.9 % (15-41); MEAN CELL VOLUME 93.3 fL CALC (80.0-100.0); MEAN CORPUSCULAR HGB 30.4 pG CALC (26.0-32.0); MEAN CORPUSCULAR HGB CONC 32.6 g/dL CAL (32.0-36.0); MONO% 6.6 % (2-13); NEUT# 8.28 thou/uL (2.00-7.15); NEUT% 60.8 % (42-76); RED BLOOD COUNT 4.5 mill/uL (4.20-5.60); RED CELL DISTRI WIDTH 11.3 % (11.5-15.5)
[2023-05-09 21:38] LABS: ALBUMIN 4.1 g/dL (3.2-5.0); CREATININE 1.8 mg/dL (0.5-1.0); POTASSIUM 3.9 mmol/l (3.5-5.1); TOTAL PROTEIN 8.4 g/dL (6.3-8.2)
[2023-05-09 21:41] LABS: BILIRUBIN, TOTAL 0.7 mg/dL (0.02-1.3)
[2023-05-10] VITALS: BP 134/82
[2023-05-10 00:41] VITALS: BP 152/88
[2023-05-10 01:02] VITALS: BP 152/88
== END 2023-05-10 01:03 | disposition short-term general hospital (02) ==
LOC: ED 20:31
PROVIDERS: Family Medicine
DX: R42 Dizziness and giddiness (principal); I10 Essential (primary) hypertension; G93.2 Benign intracranial hypertension; E03.9 Hypothyroidism, unspecified; D86.0 Sarcoidosis of lung; Z91.81 History of falling; Z98.2 Presence of cerebrospinal fluid drainage device

== ENCOUNTER 2023-06-22 07:20 | Day surgery (SDC) | payer OTHER ==
[~2023-06-22] VITALS: Ht 162.6 cm; Wt 134.3 kg
[2023-06-22] MEDS ORDERED: SODIUM CHLORIDE 0.9% 10 ML SYR ONE (07:25)
[2023-06-22] MEDS ORDERED: BUPIVACAINE HCL PF 0.5 % 50 MG/10 ML SDV ONE (09:38)
[2023-06-22] MEDS ORDERED: LIDOCAINE MPF 1% (10 MG/ML) 5 ML VIAL ONE (09:38)
[2023-06-22 09:47] VITALS: BP 146/89
== END 2023-06-22 09:05 | disposition home or self-care (01) ==
LOC: ORM 07:20
PROVIDERS: ATTEND Student in an Organized Health Care Education/Training Program
DX: G89.4 Chronic pain syndrome (principal); M79.7 Fibromyalgia; M62.838 Other muscle spasm; M54.12 Radiculopathy, cervical region; M54.16 Radiculopathy, lumbar region; M54.9 Dorsalgia, unspecified

== ENCOUNTER 2023-11-23 09:16 | Day surgery (SDC) | payer OTHER ==
[~2023-11-23] VITALS: Ht 162.6 cm; Wt 131.1 kg
[~2023-11-23 09:16] MED LIST changes: +PLENDIL5 MG PO
[2023-11-23] MEDS ORDERED: SODIUM CHLORIDE 0.9% 10 ML SYR ONE ×2 (09:21→09:54)
[2023-11-23] MEDS ORDERED: MIDAZOLAM HCL 2 MG/2 ML VIAL ONE (09:54)
[2023-11-23] MEDS ORDERED: LIDOCAINE HCL 1% (10MG/ML) 100 MG/10 ML MDV ONE (10:20)
[2023-11-23 12:42] VITALS: BP 127/78
== END 2023-11-23 11:18 | disposition home or self-care (01) ==
LOC: ORM 09:16
PROVIDERS: ATTEND Student in an Organized Health Care Education/Training Program
DX: M25.562 Pain in left knee (principal)

== ENCOUNTER 2023-11-25 16:40 | Emergency (ER) | payer OTHER ==
[~2023-11-25] VITALS: Ht 162.6 cm; Wt 131.3 kg
[2023-11-25] VITALS (16 sets, daily range): BP systolic 128–153; BP diastolic 80–108
[2023-11-25] MEDS ORDERED: KETOROLAC TROMETHAMINE 30 MG/ML SDV IM ONE (17:20)
[2023-11-25] MEDS ORDERED: TORADOL PO (21:24)
== END 2023-11-25 21:40 | disposition home or self-care (01) | DRG 552 ==
LOC: ED 16:40
DX: S16.1XXA Strain of muscle, fascia and tendon at neck level, initial encounter (principal); I10 Essential (primary) hypertension; E03.9 Hypothyroidism, unspecified; E66.9 Obesity, unspecified; V59.40XA Driver of pick-up truck or van injured in collision with unspecified motor vehicles in traffic accident, initial encounter; Z98.2 Presence of cerebrospinal fluid drainage device

== ENCOUNTER 2024-02-01 06:19 | Day surgery (SDC) | payer OTHER ==
[~2024-02-01] VITALS: Ht 162.6 cm; Wt 129.7 kg
[~2024-02-01 06:19] MED LIST changes: +TORADOL PO
[2024-02-01] MEDS ORDERED: LIDOCAINE HCL 1% (10MG/ML) 100 MG/10 ML MDV ONE (07:24)
[2024-02-01] MEDS ORDERED: TRIAMCINOLONE ACETONIDE 40 MG/ML ML ONE (07:24)
[2024-02-01] MEDS ORDERED: BUPIVACAINE HCL PF 0.5 % 50 MG/10 ML SDV ONE (07:24)
[2024-02-01] MEDS ORDERED: MIDAZOLAM HCL 2 MG/2 ML VIAL ONE (07:27)
[2024-02-01 09:03] VITALS: BP 107/77
== END 2024-02-01 08:15 | disposition home or self-care (01) ==
LOC: ORM 06:19
PROVIDERS: ATTEND Student in an Organized Health Care Education/Training Program
DX: M54.9 Dorsalgia, unspecified (principal); M54.2 Cervicalgia; G89.4 Chronic pain syndrome; M79.7 Fibromyalgia; M62.838 Other muscle spasm; M54.12 Radiculopathy, cervical region; M54.16 Radiculopathy, lumbar region
CPT/HCPCS: J3301